=== PATIENT | female | born 1960 | race Caucasian/White ===

== ENCOUNTER → 2017-09-02 | Outpatient (CLI) | payer OTHER ==
[~2017-09-02] MED LIST: BENZ100C4 PO; BENZ200C38 PO; BIRTH CONTROL; CEL100 PO; FISH OIL1 CAP PO; GUALA600 PO; HYDR-4309 PO; KET10 PO; METHY10 PO; MULT1CAP59 PO; PHEN118S56 PO; PRED20TA6 PO; SIMV-42 PO; [UNRECOGNIZED DRUG - CODE] PO
--- NOTE | 2017-09-05 09:42 | RADIOLOGY IMAGING REPORT ---
FACILITY: [facility] PATIENT NAME: CINDY ALBERTO : [id number] MR: [id number] V: [id number] EXAM DATE: ORDERING PHYSICIAN: NGOC LEON TECHNOLOGIST: Yesenia Krueger PROCEDURE:BILATERAL DIGITAL SCREENING MAMMOGRAM WITH CAD ASSISTED INTERPRETATION AND 3D BREAST TOMOSYNTHESIS. COMPARISON:Prior mammograms dated 08/11/16, 08/05/15, 06/05/14, 05/09/13 and 04/18/13. INDICATIONS:SCREENING FINDINGS: A small amount of fibroglandular tissue is seen throughout the breasts. The parenchymal pattern has remained stable when allowing for difference in mammographic technique and patient positioning. There is no evidence of malignant appearing mass, malignant appearing calcification or other secondary sign of malignancy in either breast. DIAGNOSTIC CATEGORY 1--NEGATIVE. RECOMMENDATIONS: ROUTINE MAMMOGRAM AND CLINICAL EVALUATION. IMPRESSION: Bi-RADS 1: No significant abnormality is seen. Images were reviewed with R2CAD and 3D breast tomosynthesis. Dictated by: Simona De La Paz M.D. on 09/02/2017 at 15:09 Transcribed by: [email or web address] on 09/04/2017 at 14:56 Approved by: Simona De La Paz M.D. on 09/05/2017 at 9:41 [facility]
== END ==
LOC: MAMO 01:45
PROVIDERS: ATTEND Family Medicine
DX: Z12.31 Encounter for screening mammogram for malignant neoplasm of breast (principal)
CPT/HCPCS: 77063; 77067

== ENCOUNTER → 2018-11-16 | Outpatient (CLI) | payer OTHER ==
[~2018-11-16] MED LIST changes: -HYDR-4309 PO; +HYDR-653 PO
--- NOTE | 2018-11-17 09:14 | RADIOLOGY IMAGING REPORT ---
FACILITY: [facility] PATIENT NAME: CINDY ALBERTO : [id number] MR: [id number] V: [id number] EXAM DATE: [id number] ORDERING PHYSICIAN: NGOC LEON TECHNOLOGIST: Lorrie Rowe PROCEDURE:BILATERAL DIGITAL SCREENING MAMMOGRAM WITH CAD ASSISTED INTERPRETATION & 3D TOMOSYNTHESIS COMPARISON:Prior mammograms dated 09/02/17, 08/11/16, 08/05/15, 06/05/14, 05/09/13 INDICATIONS:screening FINDINGS: There are scattered areas of fibroglandular density throughout the breasts. The parenchymal pattern has remained stable when allowing for difference in mammographic technique & patient positioning. There is no evidence of malignant appearing mass, malignant appearing calcification or other secondary sign of malignancy in either breast. DIAGNOSTIC CATEGORY 1--NEGATIVE. RECOMMENDATIONS: ROUTINE MAMMOGRAM AND CLINICAL EVALUATION. IMPRESSION: BIRADS 1: Negative. No significant abnormality is seen. Dictated by: Simnoa De La Paz M.D. on 11/16/2018 at 16:28 Transcribed by: [email or web address] on 11/17/2018 at 8:20 Approved by: Simona De La Paz M.D. on 11/17/2018 at 9:13 [facility]
== END ==
LOC: MAMO 00:55
PROVIDERS: ATTEND Family Medicine
DX: Z12.31 Encounter for screening mammogram for malignant neoplasm of breast (principal)
CPT/HCPCS: 77063; 77067